=== PATIENT | female | born 1990 | race Caucasian/White ===

== ENCOUNTER 2018-02-19 15:38 | Inpatient (IN) | payer OTHER ==
[~2018-02-19] VITALS: Ht 157.5 cm; Wt 67.3 kg
[~2018-02-19 15:38] MED LIST: AVIANE 0.02 MG-1 TAB PO; FLEXERIL 1010 MG/TAB PO
[2018-03-03] VITALS (64 sets, daily range): BP systolic 88–131; BP diastolic 51–83; PULSE 74–142; TEMP 98–99.3
[2018-03-03] MEDS ORDERED: PRENATAL-U1 CAP PO (07:39)
[2018-03-03 08:54] LABS: BASO % 0.3 % (0.0-2.0); EOS # 0.1 (0.0-0.7); EOS % 0.6 % (0-4.0); GRAN # 5.7 (1.4-6.5); HEMATOCRIT 38.5 % (37.0-47.0); HEMOGLOBIN 13.5 g/dl (12.5-16.0); LYMPH # 2.7 (1.2-3.4); LYMPH % 28.9 % (20.0-51.0); MEAN CELL VOLUME 85 fl (80.0-100.0); MEAN CORPUSCULAR HEMOGLOBIN 30 pg (27.0-31.0); MEAN CORPUSCULAR HGB CONC 35 g/dl (33.0-37.0); MEAN PLATELET VOLUME 10.8 fl (7.4-10.4); MONO # 0.8 (0.1-0.6); MONO % 8.6 % (1.7-9.3); PLATELET COUNT 197 K/mm3 (130-400); RED BLOOD COUNT 4.54 M/mm3 (4.10-5.30); REDCELL DISTRIBUTION WIDTH-CV 13.5 % (11.5-14.5)
[2018-03-04] VITALS (8 sets, daily range): BP systolic 101–118; BP diastolic 46–64; PULSE 88–127; TEMP 97.6–98.9
[2018-03-05 07:50] VITALS: BP 107/64; PULSE 98; TEMP 97.6
[2018-03-05] MEDS ORDERED: MOTRIN 600600 MG/TAB PO (08:48)
[2018-03-05] MEDS ORDERED: PERCOCET 325 MG1 TA2 PO (08:49)
== END 2018-03-05 12:50 | disposition home or self-care (01) | DRG 775 ==
LOC: LDR 03-03 06:25 → OB 03-03 06:59 → EDSTATUS 03-10 06:25 → LDRO 03-10 15:38
PROVIDERS: Obstetrics & Gynecology
PROC: 10E0XZZ Delivery of Products of Conception, External Approach (ICD-10-PCS; principal; 2018-03-03)
PROC: 3E033VJ Introduction of Other Hormone into Peripheral Vein, Percutaneous Approach (ICD-10-PCS; 2018-03-03)
DX: O70.1 Second degree perineal laceration during delivery (principal); Z3A.39 39 weeks gestation of pregnancy; Z37.0 Single live birth
CPT/HCPCS: J2590; J2795; J7120

== ENCOUNTER → 2018-03-14 | Outpatient (CLI) | payer OTHER ==
[~2018-03-14] MED LIST changes: +MOTRIN 600600 MG/TAB PO; +PERCOCET 325 MG1 TA2 PO; +PRENATAL-U1 CAP PO
== END ==
LOC: LAC 10:45
DX: Z39.1 Encounter for care and examination of lactating mother (principal); Z71.89 Other specified counseling